=== PATIENT | female | born 2000 | race Asian ===

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

== ENCOUNTER 2023-09-08 01:35 | Inpatient (IN) ==
[2023-09-08 02:23] LABS: ABS Basophils 0.1 10^3/uL (0.0-0.1); ABS Eosinophils 0.4 10^3/uL (0.0-0.5); ABS Lymphocytes 1.9 10^3/uL (1.0-4.8); ABS Monocytes 0.9 10^3/uL (0.0-0.9); ABS Neutrophils 18.9 10^3/uL (1.5-7.6); ABS Nucleated RBC 0.02 10^3/ul; Eosinophil % 1.8 %; Hematocrit 42.8 % (35-45); Hemoglobin 14.5 g/dL (11.5-14.3); Lymphocyte % 8.7 %; Mean Corpuscular Hemoglobin 29.5 pg (27-33); Mean Corpuscular Hgb Conc 33.9 g/dL (31-36); Mean Corpuscular Volume 87.1 fL (80-97); Mean Platelet Volume 7.9 fL (7.5-11.2); Nucleated Red Blood Cells % 0.1 %/100WBC (0.0-0.8); Platelet Count 329 10^3/uL (150-450); Red Blood Count 4.92 10^6/uL (3.63-4.92); Red Cell Distribution Width 13.5 % (12-17); White Blood Count 22.3 10^3/uL (3.8-11.8)
[2023-09-08 03:23] LABS: ALT 26 U/L (7-52); Albumin 4.8 g/dL (3.2-5.2); Albumin/Globulin Ratio 1.4 (1-3); Alkaline Phosphatase 90 U/L (35-149); Anion Gap 12 mmol/L (2-16); Blood Urea Nitrogen 13 mg/dL (6-24); CO2 Carbon Dioxide 24 mmol/L (22-32); Calcium 9.7 mg/dL (8.6-10.3); Chloride 99 mmol/L (101-111); Creatinine, Serum 0.76 mg/dL (0.51-0.95); Globulin 3.5 g/dL (2-4); Glucose 90 mg/dL (70-100); Sodium 135 mmol/L (135-145); Total Bilirubin 0.3 mg/dL (0.2-1.0); Total Protein 8.3 g/dL (6.4-8.9); eGFR CKD-EPI 112.8 (>60)
[2023-09-08 03:29] LABS: HCG Pregnancy < 0.60 mIU/mL
[2023-09-08] MEDS: Iohexol 350 (CONTRAST) 500 ML MDV IV ONE (04:03)
[2023-09-08] MEDS: cefTRIAXone 1 gm/50 mL D5W 1 GM/50 ML BAG IV ONE (06:25)
[2023-09-08] MEDS: methylPREDNISolone SOD SUCC 125 mg 2 ML VIAL IV ONE (06:36)
[2023-09-08] MEDS: Azithromycin 500 mg/250 ml NS 500 MG/250 ML BAG IVPB ONE (06:56)
[2023-09-08] MEDS: methylPREDNISolone SOD SUCC 40 mg/ml 1 ml VIAL IV SCH (18:16)
[2023-09-09 04:46] LABS: ABS Lymphocytes 1.3 10^3/uL (1.0-4.8); ABS Monocytes 0.6 10^3/uL (0.0-0.9); ABS Neutrophils 19.3 10^3/uL (1.5-7.6); Hematocrit 36.9 % (35-45); Hemoglobin 12.3 g/dL (11.5-14.3); Lymphocyte % 6.2 %; Mean Corpuscular Hemoglobin 29.3 pg (27-33); Mean Corpuscular Hgb Conc 33.5 g/dL (31-36); Mean Corpuscular Volume 87.5 fL (80-97); Mean Platelet Volume 8.4 fL (7.5-11.2); Platelet Count 311 10^3/uL (150-450); Red Blood Count 4.22 10^6/uL (3.63-4.92); Red Cell Distribution Width 13.5 % (12-17); White Blood Count 21.2 10^3/uL (3.8-11.8)
[2023-09-09] MEDS: Benzocaine/Menthol LOZ PO PRN (05:31)
[2023-09-09] MEDS: cefTRIAXone 1 gm/50 mL D5W 1 GM/50 ML BAG IV SCH (05:41)
[2023-09-09 05:48] LABS: Calcium 9.3 mg/dL (8.6-10.3); Creatinine, Serum 0.64 mg/dL (0.51-0.95); Potassium 4.5 mmol/L (3.5-5.0); eGFR CKD-EPI 127.3 (>60)
[2023-09-09] MEDS: Azithromycin 500 mg/250 ml NS 500 MG/250 ML BAG IVPB SCH (10:29)
[2023-09-09 23:28] LABS: Cyclic Citrullinated Pept IgG <15.6 U
[2023-09-10 05:52] LABS: ABS Lymphocytes 1.6 10^3/uL (1.0-4.8); ABS Monocytes 0.9 10^3/uL (0.0-0.9); ABS Neutrophils 18.8 10^3/uL (1.5-7.6); Hematocrit 36.5 % (35-45); Hemoglobin 12.2 g/dL (11.5-14.3); Lymphocyte % 7.3 %; Mean Corpuscular Hemoglobin 29.2 pg (27-33); Mean Corpuscular Hgb Conc 33.3 g/dL (31-36); Mean Corpuscular Volume 87.7 fL (80-97); Mean Platelet Volume 8.2 fL (7.5-11.2); Platelet Count 310 10^3/uL (150-450); Red Blood Count 4.16 10^6/uL (3.63-4.92); Red Cell Distribution Width 13.7 % (12-17); White Blood Count 21.3 10^3/uL (3.8-11.8)
[2023-09-10 06:16] LABS: Creatinine, Serum 0.65 mg/dL (0.51-0.95); Potassium 4.4 mmol/L (3.5-5.0); eGFR CKD-EPI 126.8 (>60)
[2023-09-10 13:02] LABS: Anti SSA/RO Antibody <0.2 U; RNP IgG Antibodies <0.2 U; SS-B/La Antibody <0.2 U; Sm (Smith) IgG Antibody <0.2 U
[2023-09-10 16:39] LABS: Scl 70 Ab, IgG, S <0.2 U
[2023-09-11 06:20] LABS: Calcium 9.2 mg/dL (8.6-10.3); Creatinine, Serum 0.81 mg/dL (0.51-0.95); Potassium 4.5 mmol/L (3.5-5.0); eGFR CKD-EPI 104.5 (>60)
[2023-09-11 06:30] LABS: ABS Lymphocytes 1.5 10^3/uL (1.0-4.8); ABS Monocytes 0.8 10^3/uL (0.0-0.9); ABS Neutrophils 16.2 10^3/uL (1.5-7.6); Hematocrit 38.6 % (35-45); Lymphocyte % 8.3 %; Mean Corpuscular Hemoglobin 29.4 pg (27-33); Mean Corpuscular Hgb Conc 33.5 g/dL (31-36); Mean Corpuscular Volume 87.7 fL (80-97); Mean Platelet Volume 8.2 fL (7.5-11.2); Platelet Count 341 10^3/uL (150-450); Red Cell Distribution Width 13.7 % (12-17); White Blood Count 18.6 10^3/uL (3.8-11.8)
[2023-09-11 17:36] VITALS: BP 140/78
== END 2023-09-11 17:50 | disposition home or self-care (01) | DRG 139 ==
LOC: ED 01:35 → SUATTDRO 06:08 → EDHOLD 06:08 → MEDTELE 08:17
PROVIDERS: ADMIT Internal Medicine; ATTEND Internal Medicine